=== PATIENT | female | born 2000 | race Caucasian/White ===

== ENCOUNTER → 2023-11-05 15:54 | Outpatient (REF) | payer OTHER, SELFPAY | LOC: RAD 15:54 | PROVIDERS: ATTENDING PHYSICIAN Physician Assistant; FAMILY PHYSICIAN Family Medicine; REFERRING PHYSICIAN Family Medicine | DX: Z34.90 Encounter for supervision of normal pregnancy, unspecified, unspecified trimester (principal); O36.80X0 Pregnancy with inconclusive fetal viability, not applicable or unspecified | CPT/HCPCS: 76801 ==

== ENCOUNTER → 2024-01-18 12:53 | Outpatient (REF) | payer OTHER, SELFPAY | LOC: RAD 12:53 | PROVIDERS: ATTENDING PHYSICIAN Nurse Practitioner Women's Health; FAMILY PHYSICIAN Family Medicine | DX: Z34.90 Encounter for supervision of normal pregnancy, unspecified, unspecified trimester (principal) | CPT/HCPCS: 76805 ==